=== PATIENT | female | born 1945 | race Caucasian/White ===

== ENCOUNTER → 2017-03-31 | Outpatient (CLI) | payer OTHER | LOC: FIMAGING 08:24 | PROVIDERS: ATTEND Internal Medicine | DX: Z12.39 Encounter for other screening for malignant neoplasm of breast (principal); N64.59 Other signs and symptoms in breast | CPT/HCPCS: 76641; G0204 ==

== ENCOUNTER → 2017-11-02 | Outpatient (CLI) | payer OTHER | LOC: FIMAGING 08:31 | PROVIDERS: ATTEND Internal Medicine | DX: R92.8 Other abnormal and inconclusive findings on diagnostic imaging of breast (principal) ==

== ENCOUNTER → 2018-11-09 | Outpatient (CLI) | payer OTHER | LOC: FIMAGING 07:30 ==